=== PATIENT | female | born 2000 | race Caucasian/White ===

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

== ENCOUNTER 2022-07-17 10:38 | Outpatient (REF) | payer BC, SELFPAY ==
[2022-07-18 10:56] LABS: Campylobacter PCR Negative (Negative); Salmonella PCR Negative (Negative); Shiga Toxin PCR Negative (Negative); Shigella/Enteroinvasive Ecoli Negative (Negative)
[2022-07-19 18:12] LABS: Pancreatic Elastase, F 389 mcg/g
[2022-07-22 15:01] LABS: Helicobacter pylori Ag, Feces Negative (Negative)
== END 2022-07-17 10:39 | disposition home or self-care (01) ==
LOC: NCHCN 10:38
PROVIDERS: Visit Provider Physician Assistant Medical
DX: R19.7 Diarrhea, unspecified (principal)
CPT/HCPCS: 87329; 87338; 87505; 82656; 83630

== ENCOUNTER 2023-03-02 11:23 | Emergency (ER) | payer BC, SELFPAY ==
[2023-03-02 11:29] VITALS: BP 149/66; PULSE 100; RESP 20; TEMP 37.1; O2SAT 100
--- NOTE | 2023-03-02 11:58 | W.ED.GENAD ---
Discharge Plan Disposition Patient Disposition: Home Condition: Good Discharge Details Clinical Impression: Pain, dental Primary Care Provider: Unknown,Unknown ED Provider: Nadine Jack Home Meds and New Rx's Prescriptions: No Action fluticasone propionate [Flonase Allergy Relief] 50 mcg/actuation spray,suspension 1 spray intranasal BID Qty: 16 1RF Rx Instructions: administer into each nostril Discharge Instructions Instructions: Toothache (ED) Medical Decision Making 22 year old previously healthy female presenting with four days of left molar pain, radiating into her face and jaw; known cavity in that tooth, has not seen a dentist in the past year. No systemic symptoms. Vital signs and physical exam reassuring, no evident abscess. Advised dental followup, symptomatic treatment at home. Offered IM toradol here, patient declined. Discharged home; discharge instructions including return precautions were reviewed with patient who verbalized understanding. All questions were answered and they are in full agreement with the plan. HPI General Mode of arrival: ambulatory. Date/Time Provider Initiated Documentation: 03/02/23 11:38. Limitations to Documentation: no limitations. Information obtained by: patient. HPI Narrative: 22 year old previously healthy female presenting with four days of left molar pain, radiating into her face and jaw. Pain is dull, constant, and worse with chewing. Known cavity in that tooth, has not seen a dentist in the past year. Has tried Tylenol and home without improvement. She is otherwise in her usual state of health with no fevers, chills, rash, neck pain, difficulty swallowing, ear pain, nausea, vomiting, abdominal pain, or other concerns. Related Data Home Medications Medication Instructions Recorded Confirmed fluticasone propionate 50 1 spray intranasal BID #16 grams 02/15/21 03/02/23 mcg/actuation nasal spray,suspension (Flonase Allergy Relief) Previous Rx's Medication Instructions Recorded fluticasone propionate 50 1 spray intranasal BID #16 grams 02/15/21 mcg/actuation nasal spray,suspension (Flonase Allergy Relief) Allergies Allergy/AdvReac Type Severity Reaction Status Date / Time No Known Allergies Allergy Verified 03/02/23 11:31 General Stated Complaint: DentalOral ARCELIA: 4 Review of Systems Narrative: see HPI PFSH All Active Problems (Updated 03/02/23 @ 12:00 by Nadine Jack MD) Pain, dental (Acute) Allergic rhinitis (Acute) Recurrent tonsillitis (Acute) Coccyx pain (Acute) Osteochondroma of femur (Acute) Right medial distal femur Exostosis of right femur (Chronic) Exotropia, right eye (Acute 02/01/15) Medical History Arm fracture, left AGE 4 Coccyx pain Exotropia of right eye Osteochondroma of femur Right medial distal femur Surgical History Adenoidectomy Myringotomy w/ PE (pressure equalizing) tubes Family History Mother Healthy adult Migraines Father Healthy adult Migraines Sister Exotropia Grandmother Exotropia Paternal Grandfather Heart disease History of [place] (myocardial infarction) History of heart bypass surgery Maternal Grandfather Heart disease History of [place] (myocardial infarction) History of heart bypass surgery Social History Smoking/Tobacco Use Status: Never Smoking risk assessment performed?: Yes Alcohol Intake: never Drug use: Never Substance use type: does not use current occupation: [employer] - 10th grade Do you feel safe at home: Yes Do you feel safe in your relationship?: Yes Exam Narrative Exam Narrative: General: Alert, well appearing, well nourished, in no acute distress. Head: Normocephalic, atraumatic Neck: Trachea midline, Neck supple. No cervical lymphadenopathy. ENT: MMM. No oropharygeal lesions or exudate. Good dentition. No visible abscesses. Facial bones nontender, no mastoid tenderness. Cardiac: No cyanosis. Resp: No respiratory distress, speaking in full sentences. Abd: Non-distended Extremities: No deformities. No peripheral edema. Neurologic: GCS 15. Moves all extremities freely against gravity Course Vital Signs Vital signs: Vital Signs Temperature 37.1 C 03/02/23 11:29 Pulse 100 H 03/02/23 11:29 Respiratory Rate 20 03/02/23 11:29 Blood Pressure 149/66 H 03/02/23 11:29 Pulse Oximetry 100 03/02/23 11:29 Temperature 37.1 C 03/02/23 11:29 Pulse 100 H 03/02/23 11:29 Respiratory Rate 20 03/02/23 11:29 Respiratory Effort Normal 03/02/23 11:32 Blood Pressure 149/66 H 03/02/23 11:29 Blood Pressure Position Sitting 03/02/23 11:29 Pulse Oximetry 100 03/02/23 11:29 Pain Level 5 03/02/23 11:29
[2023-03-02] MEDS: Ibuprofen 400 MG TAB PO (12:07)
[2023-03-02] MEDS: Acetaminophen 325 MG TAB 650 MG PO (12:07)
== END 2023-03-02 12:11 | disposition home or self-care (01) ==
PROVIDERS: Emergency Provider Student in an Organized Health Care Education/Training Program
DX: K08.89 Other specified disorders of teeth and supporting structures (principal)
CPT/HCPCS: 99282; 99283

== ENCOUNTER 2023-06-10 14:40 | Outpatient (REF) | payer BC, SELFPAY | END 2023-06-10 14:41 | disposition home or self-care (01) | LOC: LBN 14:40 | PROVIDERS: Visit Provider Nurse Practitioner Family | DX: B34.9 Viral infection, unspecified (principal); R07.0 Pain in throat | CPT/HCPCS: 87070 ==

== ENCOUNTER 2023-09-10 10:15 | Outpatient (CLI) | payer BC, SELFPAY ==
[2023-09-10 09:04] LABS: Abs Immature Grans 0.02 10^3/uL (0.0-0.06); Absolute Basophil Count 0.04 10^3/uL (0.0-0.2); Absolute Eosinophil Count 0.08 10^3/uL (0.0-0.7); Absolute Monocyte Count 0.35 10^3/uL (0.1-0.8); Absolute Neutrophil Count 4.27 10^3/uL (1.2-6.7); Basophils % 0.6; Eosinophils % 1.2; HCT 42.1 % (36.0-46.0); HGB 14.8 g/dL (11.2-15.7); Immature Grans % 0.3; Lymphocytes % 26.3; MCH 32.2 pg (27.0-33.0); MCHC 35.2 % (32.0-36.0); MCV 92 fL (80-95); MPV 9.5 fL (8.0-11.0); Monocytes % 5.4; Neutrophils % 66.2; Platelet Count 320 10^3/uL (130-400); RBC 4.59 10^6/uL (3.93-5.22); RDW 11.5 % (11.7-14.6); RDW-SD 38.7 fL; WBC 6.46 10^3/uL (4.4-10.8)
[2023-09-10 09:07] LABS: ESR 2 mm/hr (0-20)
[2023-09-10 09:58] LABS: TSH (W/Ref FT4) 1.79 uIU/mL (0.36-3.74)
[2023-09-11 14:18] LABS: ANA Interpretation Negative (Negative)
== END 2023-09-10 10:16 | disposition home or self-care (01) ==
LOC: LBO 10:16
PROVIDERS: Visit Provider Physician Assistant Medical
DX: I73.00 Raynaud's syndrome without gangrene (principal)
CPT/HCPCS: 36415; 85652; 84443; 85025; 86038

== ENCOUNTER → 2023-10-20 13:36 | Outpatient (CLI) | payer BC, SELFPAY ==
--- NOTE | 2023-10-20 | DI.RAD_ITS ---
Exam(s) XR FOOT LT COMPLETE EXAM: XR FOOT LT COMPLETE CLINICAL HISTORY: PAIN IN LT FOOT, M79.672, PLANTER ERYTHEMA AND PAIN OVER 1ST MTP, ? FB. TECHNIQUE: 2D digital imaging was performed of the left foot. Three images were obtained. AP, obli que and lateral views were obtained. COMPARISON: No exams were available for comparison FINDINGS: BONES: No acute fracture is present. No bony destructive lesion is seen. JOINTS: No dislocation present. SOFT TISSUE: Normal. No radiopaque foreign body. IMPRESSION: Unremarkable radiographs of the left foot. DATA REPOSITORY: RADIATION DOSE DELIVERED:
== END ==
PROVIDERS: Visit Provider Physician Assistant
DX: M79.672 Pain in left foot (principal)
CPT/HCPCS: 73630

== ENCOUNTER 2023-11-14 13:42 | Outpatient (REF) | payer BC, SELFPAY | END 2023-11-14 13:43 | disposition home or self-care (01) | LOC: NCHCN 13:42 | PROVIDERS: PCP Physician Assistant Medical; Visit Provider Physician Assistant Medical | DX: J02.9 Acute pharyngitis, unspecified (principal) | CPT/HCPCS: 87070 ==

== ENCOUNTER 2024-02-09 10:32 | Emergency (ER) | payer BC, SELFPAY ==
[2024-02-09 10:43] VITALS: BP 132/83; PULSE 93; RESP 21; TEMP 37.1; O2SAT 99
--- NOTE | 2024-02-09 10:45 | DI.CT_ITS ---
Exam(s) CT ABDOMEN PELVIS W EXAM: CT ABDOMEN PELVIS W CLINICAL HISTORY: lower abdomen pain R > L. TECHNIQUE: Imaging Protocol: Axial computed tomography images with coronal and sagittal reformatted images were created and reviewed CONTRAST MATERIAL: Intravenous: Omnipaque-350 100cc Oral: None COMPARISON: No exams were available for comparison FINDINGS: VISUALIZED LUNG BASES: No nodules nor pleural effusions evident. ABDOMEN: There is small amount of ascites in the abdomen and moderate amount of ascites in the cul-de-sac with in the pelvis. 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 There is no right-sided IVC. Both chiki ac veins in the pelvis drain into the left-sided IVC and left-sided IVC is patent and drains into the pre aortic left renal vein which then crosses the midline and drains into the intrahepatic IVC. LIVER: There are no focal hepatic lesions evident. No dilated intrahepatic ducts. GALLBLADDER/BILIARY: No obvious gallbladder pathology. CBD is not dilated. PANCREAS: No evidence of pancreatic mass nor dilatation of the pancreatic duct. SPLEEN: Spleen is not enlarged. No obvious intrasplenic lesions. Splenic and portal veins are paten t. ADRENALS: There are no significant adrenal masses. KIDNEYS:No cysts evident. No solid renal masses. No calculi nor hydronephrosis.. ABDOMINAL AORTA: Abdominal aorta is not enlarged. LYMPH NODES:There is no retroperitoneal nor paraaortic adenopathy. ABDOMINAL WALL: No evidence of significant anterior abdominal wall nor inguinal hernia. GI: There is no evidence of bowel obstruction, free air, nor abscess. PELVIS: GI: The appendix is difficult to delineate is a separate structure. However, there does appear to be a small amount of fluid in the right paracolic gutter.No significant sigmoid diverticular disease. LYMPH NODES: There is no intrapelvic nor inguinal adenopathy. REPRODUCTIVE: Uterus is anteverted and exhibits normal size. No fibroids. There is some fluid in th e endometrial canal noted. No obvious abnormal adnexal masses evident. URINARY BLADDER: No calculi nor obvious masses evident OSSEOUS: No fractures and no significant osseous lesions. Benign bone islands are incidentally noted in the anterior aspect of L5 vertebral body as well as in the right iliac bone. IMPRESSION: 1. The appendix is difficult to identify is a separate structure in this 23-year-old female patient. There is a moderate amount of pelvic ascites, predominately in the cul-de-sac but also in the right paracolic gutter. No obvious adnexal masses. Correlation with blood work including test r ecommended. Surgical consultation recommended. 2. There is some fluid in the endometrial canal noted.. 3. 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 This is paten t and drains into the pre aortic left renal vein (as is usually the case with this finding). RADIATION DOSE DELIVERED: 272.14mGy.cm Total DLP DATA REPOSITORY: All CT scans at this facility are submitted to the National Radiology Data Registry (NRDR) Dose Index Registry (DIR) with the [employer] (ACR). RADIATION OPTIMIZATION: All CT scans at this facility use at least one of these dose optimization te chniques: automated exposure control; mA and/or kV adjustment per patient size (includes targeted exa ms where dose is matched to clinical indication); or iterative reconstruction.
[2024-02-09 10:53] VITALS: BP 132/83; PULSE 93; RESP 21; TEMP 37.1; O2SAT 99
--- NOTE | 2024-02-09 10:54 | ED.GENADUL_ITS ---
Discharge Plan Disposition Patient Disposition: Home Condition: Stable Discharge Details Clinical Impression: Abdominal pain Primary Care Provider: Leroy Aguero ED Provider: Nilson Frances Home Meds and New Rx's Prescriptions: Continued fluticasone propionate [Flonase Allergy Relief] 50 mcg/actuation spray,suspension 1 spray intranasal BID Qty: 16 1RF Rx Instructions: administer into each nostril Discharge Instructions Additional Instructions: Your CAT scan did not show any evidence of appendicitis or other concerning findings. You could have a small Ovarian cyst Follow-up with your primary care provider if pain continues in a week You can take 400 mg of ibuprofen every 4 hours and 1000mg acetaminophen every 6 hours as needed if you feel more ill or have new symptoms such as persistent vomiting or fevers return to the emergency department HPI General Mode of arrival: ambulatory . Date/Time Provider Initiated Documentation: 02/09/24 10:33 . Limitations to Documentation: no limitations . Information obtained by: patient . History of Present Illness 23 year old F presents to the emergency department with the chief complaint of Abdominal pain, described as moderate, and is localized to the abdomen. Patient reports no radiation. Patient started experiencing this day(s) (3) and it has been constant. No relieving factors improve symptom(s), No exacerbating factors reported . Patient notes denies chest pain, fever/chills, nausea/vomiting and shortness of breath. Patient did receive the following treatments prior to arrival, none Related Data Home Medications ?Medication ?Instructions ?Recorded ?Confirmed fluticasone propionate 50 1 spray intranasal BID #16 grams 02/15/21 02/09/24 mcg/actuation nasal spray,suspension (Flonase Allergy Relief) Previous Rx's ?Medication ?Instructions ?Recorded fluticasone propionate 50 1 spray intranasal BID #16 grams 02/15/21 mcg/actuation nasal spray,suspension (Flonase Allergy Relief) Allergies Allergy/AdvReac Type Severity Reaction Status Date / Time No Known Allergies Allergy Verified 02/09/24 10:49 General Stated Complaint: Abd Prob ARCELIA: 3 Review of Systems All systems reviewed & are unremarkable except as noted in HPI and below Constitutional Constitutional: Denies chills, Denies fever(s) and Denies weakness Cardiovascular Cardiovascular: Denies chest pain and Denies dyspnea Respiratory Respiratory: Denies cough and Denies dyspnea Gastrointestinal Gastrointestinal: Reports abdominal pain, Denies nausea and Denies vomiting Integumentary/Breasts Skin/Breast: Denies rash Neurologic Neurologic: Denies weakness Psychiatric Psychiatric: Denies depression Exam Const General: no acute distress Orientation: alert HENMT Head: normal to inspection Ears: external ears normal General nose exam: external nose normal Mouth: moist mucous membranes Eyes General: appearance normal, both eyes and all related structures Neck Neck: normal visual inspection Resp Effort & Inspection: normal respiratory effort and able to speak in complete sentences Cardio Rate: regular rate GI Palpation: soft and tender Skin General skin exam: no rashes or lesions noted Neuro General: patient alert and patient oriented x3 Extrem General: normal to inspection Psych Mental Status: mental status grossly normal Course Vital Signs Vital signs: Vital Signs Temperature 37.1 C 02/09/24 10:43 Pulse 93 H 02/09/24 10:43 Respiratory Rate 21 02/09/24 10:43 Blood Pressure 132/83 02/09/24 10:43 Pulse Oximetry 99 02/09/24 10:43 Temperature 37.1 C 02/09/24 10:43 Temperature Source Oral 02/09/24 10:43 Pulse 93 H 02/09/24 10:43 Respiratory Rate 21 02/09/24 10:43 Blood Pressure 132/83 02/09/24 10:43 Blood Pressure Position Sitting 02/09/24 10:43 Pulse Oximetry 99 02/09/24 10:43 Oxygen Delivery Method Room Air 02/09/24 10:43 Oxygen Flow Rate 0 02/09/24 10:43 Pain Level 6 02/09/24 10:43 Medical Decision Making 23-year-old female who denies any significant chronic medical problems no prior abdominal surgery comes in with 3 to 4 days of lower abdominal pain. She says the pain initially was on the right side but now is on both lower abdomen sites. She denies any vomiting. She says when she has a bowel movement the pain increases. Denies any diarrhea or constipation though. She is alert and appears well on exam. Her abdomen is soft with no tenderness in the upper abdomen, she is tender in both the left lower and right lower quadrant. Given continued pain and location of pain we will proceed with CBC, CMP, lipase and CT abdomen pelvis to evaluate for possible appendicitis versus diverticulitis. Has no pelvic pain so doubt entities such as ovarian torsion. Patient stable pain resolved with Toradol and has no tenderness anymore. CT read as showing intraperitoneal fluid, poorly visualized appendix. She has no right lower quadrant tenderness anymore. Has no leukocytosis and pain going on for 4 days so doubt appendicitis as would expect evidence of perforation at this point. She could have a small ovarian cyst no seen on CT. Given lack of pain now with no tenderness feel she is stable for discharge to follow-up with her PCP and return Differential Diagnosis Differential Diagnosis: constipation, ovarian cyst Imaging Data Radiologic Study: Attestation: I personally reviewed and interpreted this imaging study as follows: Imaging: CT Scan Radiologist's impression: IMPRESSION: 1. Moderate quantity of intraperitoneal fluid. 2. Poorly visualized appendix. If appendicitis is of clinical concern, repeat CT following rectal contrast administration would be recommended for improved characterization Lab Data Lab results reviewed: Yes I reviewed the patient's lab results. Quality:SDOH Health Related Social Needs: No Data to Display PFSH All Active Problems (Updated 02/09/24 @ 13:01 by Nilson Frances MD) Abdominal pain (Acute) Allergic rhinitis (Acute) Recurrent tonsillitis (Acute) Coccyx pain (Acute) Osteochondroma of femur (Acute) Right medial distal femur Exostosis of right femur (Chronic) Exotropia, right eye (Acute 02/01/15) Medical History Arm fracture, left AGE 4 Coccyx pain Exotropia of right eye Osteochondroma of femur Right medial distal femur Surgical History Adenoidectomy Myringotomy w/ PE (pressure equalizing) tubes Family History Mother Healthy adult Migraines Father Healthy adult Migraines Sister Exotropia Grandmother Exotropia Paternal Grandfather Heart disease History of [place] (myocardial infarction) History of heart bypass surgery Maternal Grandfather Heart disease History of [place] (myocardial infarction) History of heart bypass surgery Social History Smoking/Tobacco Use Status: Never Smoking risk assessment performed?: Yes Alcohol Intake: never Drug use: Never Substance use type: does not use 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
[2024-02-09 10:57] LABS: Bilirubin Negative (Negative); Blood Moderate (Negative); Clarity Sl Cloudy (Clear); Glucose Negative (Negative); Ketones Negative (Negative); Leukocyte Esterase Negative (Negative); Nitrite Negative (Negative); Urobilinogen 0.2 mg/dL (Up to 0.2); pH 7.5 (5-8)
[2024-02-09 11:05] LABS: WBC 0-2 HPF (0-5)
[2024-02-09 11:06] LABS: Bacteria Few HPF (Negative); C & S Indicated? No; Crystals Negative HPF (Negative); Epithelial Cells Many HPF (Negative); Mucus Negative (Negative)
[2024-02-09] MEDS: Normal Saline 1,000 ML 1000 ML IV (11:22)
[2024-02-09] MEDS: Ketorolac 15 MG/ML VIAL IVP (11:22)
[2024-02-09 11:33] LABS: Abs Immature Grans 0.03 10^3/uL (0.0-0.06); Absolute Basophil Count 0.04 10^3/uL (0.0-0.2); Absolute Eosinophil Count 0.06 10^3/uL (0.0-0.7); Absolute Lymphocyte Count 1.64 10^3/uL (1.2-3.4); Absolute Monocyte Count 0.41 10^3/uL (0.1-0.8); Absolute Neutrophil Count 6.22 10^3/uL (1.2-6.7); Basophils % 0.5 %; Eosinophils % 0.7 %; HCT 41.6 % (36.0-46.0); HGB 14.6 g/dL (11.2-15.7); Immature Grans % 0.4 %; Lymphocytes % 19.5 %; MCHC 35.1 % (32.0-36.0); MCV 94 fL (80-95); MPV 9.6 fL (8.0-11.0); Monocytes % 4.9 %; Platelet Count 244 10^3/uL (130-400); RBC 4.42 10^6/uL (3.93-5.22); RDW 11.9 % (11.7-14.6); RDW-SD 40.9 fL
[2024-02-09] MEDS: Normal Saline - Diluent 50 ML VIAL IJ (11:39)
[2024-02-09] MEDS: Omnipaque 350 MG/ML 100 ML BTL IJ (11:40)
[2024-02-09 11:49] LABS: ALT 28 U/L (14-59); AST 20 U/L (15-37); Alkaline Phosphatase 64 U/L (46-116); Anion Gap 9.4 mmol/L (3-11); BUN 10 mg/dL (7-18); Bilirubin, Total 1.86 mg/dL (0.2-1.0); CO2 22.6 mmol/L (21.0-32.0); CREATININE 0.7 mg/dL (0.55-1.02); Calcium 9.3 mg/dL (8.5-10.1); Chloride 107 mmol/L (98-107); Estimated GFR 126.11 (mL/min/1.73m2); Glucose 92 mg/dL (74-106); Lipase 26 U/L (16-77); Magnesium 1.8 mg/dL (1.8-2.4); Potassium 3.7 mmol/L (3.5-5.1); Sodium 139 mmol/L (136-145); Total Protein 7.5 g/dL (6.4-8.2)
--- NOTE | 2024-02-09 12:41 | DI.VRAD_ITS ---
PROCEDURE INFORMATION: Exam: CT Abdomen And Pelvis With Contrast Exam date and time: 02/09/2024 11:41 AM Age: 23 years old Clinical indication: Other: Lower abdomen pain R > L TECHNIQUE: Imaging protocol: Computed tomography of the abdomen and pelvis with contrast. Radiation optimization: All CT scans at this facility use at least one of these dose optimization techniques: automated exposure control; mA and/or kV adjustment per patient size (includes targeted exams where dose is matched to clinical indication); or iterative reconstruction. Contrast material: OMNI 350; Contrast volume: 100 ml; Contrast route: INTRAVENOUS (IV); COMPARISON: None FINDINGS: Lungs: No acute airspace or pleural disease. Liver: No focal hepatic mass. Gallbladder and biliary ducts: Unremarkable gallbladder. Pancreas: No pancreatic mass or ductal dilatation. Spleen: No splenomegaly. Adrenal glands: Normal adrenal morphology. Kidneys and ureters: Normal renal morphology. No hydronephrosis. Stomach and bowel: Diverticula, without pericolonic inflammation. Appendix: Poorly visualized appendix. If appendicitis is of clinical concern, repeat CT following rectal contrast administration would be recommended for improved characterization. Intraperitoneal space: Moderate quantity of intraperitoneal fluid, . Vasculature: Left-sided IVC. Normal caliber of the abdominal aorta. Lymph nodes: Subcentimeter lymph nodes. Urinary bladder: Normal morphology of the dilated bladder. Reproductive: Unremarkable as visualized. Bones/joints: Schmorl's nodes. 9 x 3 mm bone island in the anterior aspect of the L5 vertebral body. Soft tissues: Unremarkable. IMPRESSION: 1. Moderate quantity of intraperitoneal fluid. 2. Poorly visualized appendix. If appendicitis is of clinical concern, repeat CT following rectal contrast administration would be recommended for improved characterization. Dictated and Authenticated by: Tyson Valentine MD. Ordering:SHARRON Devine MD
[2024-02-09 13:12] VITALS: BP 130/78; PULSE 90; RESP 18; TEMP 36.9; O2SAT 98
== END 2024-02-09 13:12 | disposition home or self-care (01) ==
PROVIDERS: Emergency Provider Emergency Medicine; PCP Physician Assistant Medical
DX: R10.32 Left lower quadrant pain (principal)
CPT/HCPCS: 80053; 83690; 96361; 96374; 99285; 74177; 81003; 81015; 83735; 85025; 99284; J1885; J3490

== ENCOUNTER 2024-07-13 10:31 | Outpatient (REF) | payer BC, SELFPAY ==
[2024-07-14 11:32] LABS: IgA 194 mg/dL (85-499); Interpretation (See Note); Tissue Transglutaminase IgA <4.0 CU (<20.0)
== END 2024-07-13 10:32 | disposition home or self-care (01) ==
LOC: NCHCN 10:31
PROVIDERS: PCP Physician Assistant Medical; Visit Provider Physician Assistant Medical
DX: K52.9 Noninfective gastroenteritis and colitis, unspecified (principal)
CPT/HCPCS: 82784; 83516